=== PATIENT | female | born 1945 | race Caucasian/White ===

== ENCOUNTER 2018-06-30 06:00 | Day surgery (SDC) | payer OTHER ==
[~2018-06-30] VITALS: Ht 162.6 cm; Wt 81.6 kg
[~2018-06-30 06:00] MED LIST: DILTIAZEM 24HR120 MG PO; LEVO-T75 MCG PO; MONTELUKAST SOD10 MG PO; VASOTEC5 MG PO
== END 2018-06-30 13:00 | disposition home or self-care (01) ==
LOC: CIR.AMB 06:00 → O/R 06:00 → SURH 06:00 → O/R 10:30 → SURH 12:30 → EDSTATUS 12:30 → CIR.AMB 13:00 → SURH 23:30
DX: C56.2 Malignant neoplasm of left ovary (principal); C78.6 Secondary malignant neoplasm of retroperitoneum and peritoneum